=== PATIENT | male | born 2005 | race African-American/Black ===

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

== ENCOUNTER 2025-03-21 17:54 | Emergency (ER) | payer OTHER, MEDICAID ==
[~2025-03-21] VITALS: Ht 185.4 cm; Wt 93.0 kg
[~2025-03-21 17:54] MED LIST: CEPH500C2 MT
[2025-03-21 18:02] VITALS: O2SAT 98
[2025-03-21] MEDS ORDERED: TOPUD MT (19:46)
[2025-03-21] MEDS ORDERED: IBUP-1525 MT (19:46)
[2025-03-21] MEDS: IBUPROFEN 800MG TABLET PO ONE (20:06)
[2025-03-21] MEDS: ACETAMINOPHEN 325MG TABLET PO ONE (20:07)
[2025-03-21 20:10] VITALS: BP 127/71; PULSE 79; RESP 16; TEMP 37.1; O2SAT 98
== END 2025-03-21 20:10 | disposition home or self-care (01) ==
LOC: ER 17:54
DX: S60.211A Contusion of right wrist, initial encounter (principal); S20.219A Contusion of unspecified front wall of thorax, initial encounter; S60.811A Abrasion of right wrist, initial encounter; Z90.49 Acquired absence of other specified parts of digestive tract; Z88.1 Allergy status to other antibiotic agents; V49.9XXA Car occupant (driver) (passenger) injured in unspecified traffic accident, initial encounter; Y93.89 Activity, other specified; Y92.89 Other specified places as the place of occurrence of the external cause; Y99.8 Other external cause status
CPT/HCPCS: 71045; 93005; 99283